=== PATIENT | male | born 1980 | race Asian ===

== ENCOUNTER 2020-06-07 12:22 | Emergency (ER) | payer OTHER ==
--- NOTE | 2020-06-07 13:22 | TELE ---
HPI Do you have fever,cough or shortness of breath?: No - General Reason For Visit: TEST FOR COVID 19 Time Seen by Provider: 06/07/20 13:19 History Source: Patient Exam Limitations: Clinical Condition - History of Present Illness Timing/Duration: unsure Associated Symptoms: reports: denies symptoms. denies: chest pain, cough, fever/chills, headaches, loss of appetite, malaise, nausea/vomiting, rash, shortness of breath, weakness 06/07/20 13:19 Patient with no significant past medical history recent return from [facility] on May 26 and present for COVID testing. Patient denies any symptoms. Denies fever, chills, shortness of breath, cough, palpitation, weakness. Patient is now 14 days quarantine post visit and wants to make sure his COVID negative before he visited family members. Denies any other symptoms Review of Systems - Review of Systems Able to Perform ROS?: Yes Limited Turkish proficient: No Constitutional: No: Chills, Fever, Malaise HEENTM: No: Symptoms Reported, See HPI, Eye Pain, Blurred Vision, Tearing, Recent change in vision, Double Vision, Cataracts, Ear Pain, Ocular Prothesis, Ear Discharge, Nose Pain, Nose Congestion, Tinnitus, Nose Bleeding, Hearing Loss, Throat Pain, Throat Swelling, Mouth Pain, Dental Problems, Difficulty Swallowing, Mouth Swelling, Other Respiratory: No: Symptoms reported, See HPI, Cough, Orthopnea, Shortness of Breath, SOB with Exertion, SOB at Rest, Stridor, Wheezing, Productive cough, Hemoptysis, Other ABD/GI: No: Symptoms Reported, Nausea, Vomiting Musculoskeletal: No: Symptoms Reported Integumentary: No: Symptoms Reported, Change in Color, Erythema, Rash Neurological: No: Symptoms reported, Headache, Dizziness All Other Systems: Reviewed and Negative *Physical Exam - Physical Exam General Appearance: Yes: Nourished, Appropriately Dressed. No: Apparent Distress HEENT: positive: Normal ENT Inspection Respiratory/Chest: negative: Respiratory Distress, Accessory Muscle Use Musculoskeletal: positive: Normal Inspection Extremity: positive: Normal Inspection, Normal Range of Motion Integumentary: positive: Normal Color Neurologic: positive: Fully Oriented, Alert, Normal Mood/Affect, Normal Response, Motor Strength 5/5 Discharge Diagnosis at time of Disposition: Encounter by telehealth for suspected COVID-19 - Referrals - Patient Instructions - Discharge Disposition: HOME Condition at time of Disposition: Stable
== END 2020-06-07 13:40 | disposition home or self-care (01) ==
LOC: JVIRT 12:22
DX: Z03.818 Encounter for observation for suspected exposure to other biological agents ruled out (principal); Z11.59 Encounter for screening for other viral diseases
CPT/HCPCS: Q3014-GT; U0003